=== PATIENT | male | born 1950 | race African-American/Black ===

== ENCOUNTER 2018-05-13 13:00 | Emergency (ER) | payer MEDICARE, MEDICAID ==
[~2018-05-13] VITALS: Ht 190.5 cm; Wt 87.0 kg
[2018-05-13] MEDS ORDERED: IBUPROFEN 600MG TABLET PO ONE (14:00)
[2018-05-13] MEDS ORDERED: HYDROCODONE/ACETAMINOPHEN 5/325MG TABLET PO ONE (16:45)
[2018-05-13 18:24] VITALS: BP 154/77
== END 2018-05-13 18:27 | disposition home or self-care (01) ==
LOC: ER 14:40
DX: M25.511 Pain in right shoulder (principal); F17.200 Nicotine dependence, unspecified, uncomplicated
CPT/HCPCS: 71045; 73000; 99284

== ENCOUNTER 2019-06-28 21:23 | Emergency (ER) | payer MEDICAID, MEDICARE, OTHER ==
[~2019-06-28] VITALS: Ht 182.9 cm; Wt 84.0 kg
[2019-06-28] MEDS ORDERED: SODIUM CHLORIDE 0.9% 1,000 ML IV ONE (21:58)
[2019-06-28] MEDS ORDERED: ONDANSETRON HCL 4MG/2ML INJ IV STA (21:58)
[2019-06-28 22:33] LABS: BG BASE EXCESS 0.4 mmol/L (-2.0-2.0); BG CARBOXYHEMOGLOBIN 3.4 % (0.5-1.5); BG DEOXYHEMOGLOBIN 4.4 % (0.0-5.0); BG FRACTION INSPIRED OXYGEN 21; BG HCO3 ACT 26.3 mmol/L (22.0-26.0); BG METHEMOGLOBIN 0.2 % (0.0-1.5); BG OXYGEN SATURATION 95.4 % (92.0-98.5); BG PCO2 47.1 mmHg (35.0-45.0); BG PH 7.364 (7.350-7.450); BG PO2 79.6 mmHg (75.0-100.0); BG SAMPLE SITE RIGHT BRACHIAL; BG TOTAL HEMOGLOBIN 14.3 g/dL (12.0-18.0); BG VENT MODE ROOM AIR
[2019-06-29 00:03] LABS: BASOPHILS % 0.3 % (0.0-2.0); EOSINOPHILS % 0.5 % (0.0-5.0); HEMATOCRIT. 44.8 % (42.0-52.0); HEMOGLOBIN. 14.4 g/dL (14.0-18.0); LYMPHOCYTES % 18.2 % (20.0-50.0); MEAN CORPUSCULAR HEMOGLOBIN 29.6 pg (28.0-32.0); MEAN CORPUSCULAR VOLUME 91.9 fL (80.0-94.0); MEAN PLATELET VOLUME 8.3 fl (7.4-10.4); MONOCYTES % 7.4 % (2.0-8.0); NEUTROPHILS % 73.6 % (40.0-76.0); PLATELET 186 x1000/uL (130-400); RED BLOOD CELL COUNT 4.88 mill/uL (4.7-6.1); RED CELL DISTRIBUTION WIDTH 14.4 % (11.6-14.6)
[2019-06-29 00:08] LABS: CHLORIDE 108 mEq/L (98-107)
[2019-06-29 00:13] LABS: ETHANOL BLOOD < 10 mg/dL
[2019-06-29 01:40] LABS: PARTIAL THROMBOPLASTIN TIME 27.5 sec (23.4-31.0); PROTHROMBIN TIME 10.5 sec (9.6-11.0)
[2019-06-29 02:02] LABS: CREATINE KINASE MB FRACTION 2.3 ng/mL (0.5-3.6)
[2019-06-29 03:07] VITALS: BP 133/67
== END 2019-06-29 04:10 | disposition short-term general hospital (02) ==
LOC: ER 21:23 → CANBEDREQ 06-29 05:12
DX: R55 Syncope and collapse (principal); R53.1 Weakness; G93.40 Encephalopathy, unspecified
CPT/HCPCS: 36415; 36600; 70450; 71045; 80053; 80320; 82140; 82375; 82550; 82553; 82805; 83605; 83690; 83880; 84443; 84484; 85025; 85610; 85730; 87040; 93005; 96361; 96374; 99285; J2405; J7030; G0480

== ENCOUNTER 2020-05-24 12:18 | Emergency (ER) | payer OTHER ==
[~2020-05-24] VITALS: Ht 185.4 cm; Wt 84.0 kg
[2020-05-24 13:36] LABS: BASOPHILS % 0.3 % (0.0-2.0); EOSINOPHILS % 0.2 % (0.0-5.0); HEMATOCRIT. 43.2 % (42.0-52.0); HEMOGLOBIN. 14.2 g/dL (14.0-18.0); LYMPHOCYTES % 10.4 % (20.0-50.0); MEAN CORPUSCULAR HEMOGLOBIN 28.6 pg (28.0-32.0); MEAN CORPUSCULAR VOLUME 86.8 fL (80.0-94.0); MONOCYTES % 5.5 % (2.0-8.0); NEUTROPHILS % 83.6 % (40.0-76.0); RED BLOOD CELL COUNT 4.98 mill/uL (4.7-6.1); RED CELL DISTRIBUTION WIDTH 14.6 % (11.6-14.6)
[2020-05-24 13:38] LABS: CHLORIDE 102 mEq/L (98-107)
[2020-05-24 13:42] LABS: ETHANOL BLOOD < 10 mg/dL
[2020-05-24 14:02] LABS: PLATELET 129 x1000/uL (130-400)
[2020-05-24] MEDS ORDERED: DOXYCYCLINE 100MG in DEXTROSE 5% WATER 100ML IV SCH (15:00)
[2020-05-24] MEDS ORDERED: DOXYCYCLINE HYCLATE 100 MG/VIAL IV ONE (15:00)
[2020-05-24] MEDS ORDERED: CEFTRIAXONE 1 G PREMIX 50 ML IV NR (15:00)
[2020-05-24 19:00] VITALS: BP 156/73
== END 2020-05-24 19:23 | disposition short-term general hospital (02) ==
LOC: ER 12:44
DX: J18.9 Pneumonia, unspecified organism (principal); I63.9 Cerebral infarction, unspecified; R29.6 Repeated falls; I10 Essential (primary) hypertension
CPT/HCPCS: 36415; 70450; 71045; 73030; 80053; 80320; 82140; 83690; 83880; 84443; 84484; 85025; 96365; 96368; 99285; J0696; J3490; J7060; G0480

== ENCOUNTER 2021-04-30 22:36 | Inpatient (IN) | payer OTHER, MEDICAID ==
[~2021-04-30] VITALS: Ht 182.9 cm; Wt 67.6 kg
[~2021-04-30 22:36] MED LIST: ASCO500T20 PO; DILT90TA2 PO; FAMO20TA8 PO; LINE600T11 PO
[2021-05-01] MEDS ORDERED: ONDANSETRON HCL 4MG/2ML INJ IV STA (00:43)
[2021-05-01] MEDS ORDERED: MORPHINE SULFATE 4 MG/ML CPJ (NOT FOR IM USE) IV STA (00:43)
[2021-05-01] MEDS ORDERED: SODIUM CHLORIDE 0.9% 1,000 ML IV ONE (00:45)
[2021-05-01] MEDS ORDERED: MORPHINE SULFATE 2 MG/ML CPJ (NOT FOR IM USE) IV STA (01:30)
[2021-05-01 01:37] LABS: BASOPHILS % 0.8 % (0.0-2.0); EOSINOPHILS % 0.8 % (0.0-5.0); HEMATOCRIT. 37.2 % (42.0-52.0); HEMOGLOBIN. 12.2 g/dL (14.0-18.0); LYMPHOCYTES % 35.5 % (20.0-50.0); MEAN CORPUSCULAR HEMOGLOBIN 28.5 pg (28.0-32.0); MEAN PLATELET VOLUME 8.1 fl (7.4-10.4); MONOCYTES % 7.1 % (2.0-8.0); NEUTROPHILS % 55.8 % (40.0-76.0); PLATELET 364 x1000/uL (130-400); RED BLOOD CELL COUNT 4.28 mill/uL (4.7-6.1); RED CELL DISTRIBUTION WIDTH 15.3 % (11.6-14.6)
[2021-05-01 01:41] LABS: CHLORIDE 113 mEq/L (98-107)
[2021-05-01 03:31] LABS: CLARITY URINE CLEAR (CLEAR); COLOR URINE YELLOW (YELLOW); KETONES URINE NEGATIVE (NEGATIVE); LEUKOCYTE ESTERASE URINE TRACE (NEGATIVE); NITRITE URINE POSITIVE (NEGATIVE); OCCULT BLOOD URINE TRACE (NEGATIVE); PROTEIN URINE TRACE (NEGATIVE); SPECIFIC GRAVITY URINE 1.029 (1.005-1.030)
[2021-05-01] MEDS ORDERED: CEFTRIAXONE 1 G PREMIX 50 ML IV ONE (04:45)
[2021-05-01] MEDS ORDERED: CEFTRIAXONE 1 G PREMIX 50 ML IV SCH (09:15)
[2021-05-01] MEDS ORDERED: ACETAMINOPHEN 325MG TABLET PO PRN (09:15)
[2021-05-01] MEDS ORDERED: IPRATROPIUM/ALBUTEROL 0.5-3(2.5)MG/3ML NEB HHN PRN (09:15)
[2021-05-01] MEDS ORDERED: ONDANSETRON HCL 4MG/2ML INJ IV PRN (09:15)
[2021-05-01] MEDS ORDERED: CLONIDINE 0.1MG TABLET PO PRN (09:15)
[2021-05-01 18:20] VITALS: BP 126/56
[2021-05-01 20:00] VITALS: BP 129/68
[2021-05-01] MEDS: MORPHINE SULFATE 2 MG/ML CPJ (NOT FOR IM USE) IV PRN (23:51)
[2021-05-02] VITALS: BP 137/71
[2021-05-02 04:00] VITALS: BP 143/90
[2021-05-02] MEDS ORDERED: CEFTRIAXONE 1,000 MG in DEXTROSE 5% WATER 50 ML IV SCH (05:00)
[2021-05-02] MEDS ORDERED: NALOXONE HCL 0.4MG/ML VIAL IV PRN (05:45)
[2021-05-02] MEDS: CEFTRIAXONE 1,000 MG in DEXTROSE 5% WATER 50 ML IV SCH ×2 (06:42→11:13)
[2021-05-02 06:56] LABS: BASOPHILS % 0.4 % (0.0-2.0); EOSINOPHILS % 0.6 % (0.0-5.0); HEMATOCRIT. 33.3 % (42.0-52.0); HEMOGLOBIN. 10.8 g/dL (14.0-18.0); LYMPHOCYTES % 39.1 % (20.0-50.0); MEAN CORPUSCULAR HEMOGLOBIN 28.2 pg (28.0-32.0); MEAN PLATELET VOLUME 8.4 fl (7.4-10.4); MONOCYTES % 7.5 % (2.0-8.0); NEUTROPHILS % 52.4 % (40.0-76.0); PLATELET 331 x1000/uL (130-400); RED BLOOD CELL COUNT 3.83 mill/uL (4.7-6.1); RED CELL DISTRIBUTION WIDTH 15.2 % (11.6-14.6)
[2021-05-02 07:16] LABS: CHLORIDE 112 mEq/L (98-107)
[2021-05-02 07:29] LABS: LDL CHOLESTEROL 78 mg/dL (5-100)
[2021-05-02 07:32] LABS: HDL CHOLESTEROL 49 mg/dL (40-59)
[2021-05-02 08:00] VITALS: BP 139/70
[2021-05-02] MEDS: DIPHENHYDRAMINE 50MG/ML VIAL IV PRN ×3 (09:15→22:33)
[2021-05-02 10:34] LABS: BG BASE EXCESS 3.5 mmol/L (-2.0-2.0); BG CARBOXYHEMOGLOBIN 0.3 % (0.5-1.5); BG DEOXYHEMOGLOBIN 4.1 % (0.0-5.0); BG FRACTION INSPIRED OXYGEN 21; BG HCO3 ACT 28.8 mmol/L (22.0-26.0); BG METHEMOGLOBIN 0.1 % (0.0-1.5); BG OXYGEN SATURATION 95.9 % (92.0-98.5); BG OXYHEMOGLOBIN 95.5 % (94.0-97.0); BG PCO2 46.7 mmHg (35.0-45.0); BG PH 7.408 (7.350-7.450); BG PO2 84.8 mmHg (75.0-100.0); BG SAMPLE SITE RIGHT BRACHIAL; BG TOTAL HEMOGLOBIN 11.3 g/dL (12.0-18.0); BG VENT MODE ROOM AIR
[2021-05-02 12:00] VITALS: BP 123/66
[2021-05-02 16:00] VITALS: BP 148/71
[2021-05-02 20:00] VITALS: BP 103/67
[2021-05-03] VITALS: BP 123/67
[2021-05-03] MEDS: MORPHINE SULFATE 2 MG/ML CPJ (NOT FOR IM USE) IV PRN (02:53)
[2021-05-03 04:00] VITALS: BP 133/86
[2021-05-03 06:36] LABS: BASOPHILS % 0.4 % (0.0-2.0); EOSINOPHILS % 1.3 % (0.0-5.0); HEMATOCRIT. 33.3 % (42.0-52.0); LYMPHOCYTES % 30.3 % (20.0-50.0); MEAN CORPUSCULAR HEMOGLOBIN 28.4 pg (28.0-32.0); MEAN PLATELET VOLUME 8.5 fl (7.4-10.4); MONOCYTES % 6.7 % (2.0-8.0); NEUTROPHILS % 61.3 % (40.0-76.0); PLATELET 339 x1000/uL (130-400); RED BLOOD CELL COUNT 3.87 mill/uL (4.7-6.1); RED CELL DISTRIBUTION WIDTH 14.9 % (11.6-14.6)
[2021-05-03 06:46] LABS: CHLORIDE 109 mEq/L (98-107)
[2021-05-03 08:00] VITALS: BP 128/77
[2021-05-03 12:00] VITALS: BP 113/60
[2021-05-03 12:28] LABS: TOTAL IRON BINDING CAPACITY 176 ug/dL (250-450)
[2021-05-03 12:58] LABS: VITAMIN B12 SERUM 865 pg/mL (211-911)
[2021-05-03] MEDS: DILTIAZEM HCL 30MG TABLET PO SCH ×2 (14:48→21:27)
[2021-05-03] MEDS: ENOXAPARIN 80MG/0.8ML SYR SUBCUT SCH ×2 (14:48→21:27)
[2021-05-03 16:00] VITALS: BP 117/72
[2021-05-03 20:00] VITALS: BP 128/68
[2021-05-04] VITALS: BP 142/61
[2021-05-04] MEDS: DIPHENHYDRAMINE 50MG/ML VIAL IV PRN ×2 (00:03→13:15)
[2021-05-04 04:00] VITALS: BP 124/70
[2021-05-04] MEDS: DILTIAZEM HCL 30MG TABLET PO SCH ×2 (05:15→13:13)
[2021-05-04] MEDS: CEFTRIAXONE 1,000 MG in DEXTROSE 5% WATER 50 ML IV SCH (07:05)
[2021-05-04 08:00] VITALS: BP 112/69
[2021-05-04] MEDS: ENOXAPARIN 80MG/0.8ML SYR SUBCUT SCH ×2 (09:22→21:00)
[2021-05-04 12:00] VITALS: BP 106/58
[2021-05-04] MEDS ORDERED: LORAZEPAM 2MG/ML CPJ IV SCH (14:00)
[2021-05-04] MEDS ORDERED: RISPERIDONE 0.25MG TABLET PO SCH (15:00)
[2021-05-04 16:00] VITALS: BP 116/65
[2021-05-04] MEDS ORDERED: FERROUS SULFATE 325MG TABLET PO SCH (17:10)
[2021-05-04 21:11] VITALS: BP 144/75
== END 2021-05-04 22:20 | disposition short-term general hospital (02) | DRG 551 ==
LOC: ER 22:36 → MICUSO 05-01 08:23 → 7EST 05-01 15:32
PROVIDERS: ADMIT Internal Medicine; ATTEND Internal Medicine
DX: M48.02 Spinal stenosis, cervical region (principal); G82.50 Quadriplegia, unspecified; M48.55XA Collapsed vertebra, not elsewhere classified, thoracolumbar region, initial encounter for fracture; N39.0 Urinary tract infection, site not specified; G95.9 Disease of spinal cord, unspecified; G95.20 Unspecified cord compression; E44.0 Moderate protein-calorie malnutrition; M48.061 Spinal stenosis, lumbar region without neurogenic claudication; M51.26 Other intervertebral disc displacement, lumbar region; G58.9 Mononeuropathy, unspecified; E78.5 Hyperlipidemia, unspecified; F03.90 Unspecified dementia, unspecified severity, without behavioral disturbance, psychotic disturbance, mood disturbance, and anxiety; G89.29 Other chronic pain; I10 Essential (primary) hypertension; M47.9 Spondylosis, unspecified; M85.80 Other specified disorders of bone density and structure, unspecified site; M54.9 Dorsalgia, unspecified; L89.216 Pressure-induced deep tissue damage of right hip; I48.0 Paroxysmal atrial fibrillation; D50.9 Iron deficiency anemia, unspecified; Z86.73 Personal history of transient ischemic attack (TIA), and cerebral infarction without residual deficits; Z79.899 Other long term (current) drug therapy; Z68.20 Body mass index [BMI] 20.0-20.9, adult
CPT/HCPCS: 36415; 36600; 71045; 72100; 72141; 72146; 72148; 80048; 80053; 80061; 80076; 81003; 82040; 82270; 82375; 82607; 82805; 82962; 83540; 83550; 84134; 84153; 84443; 85025; 85044; 93005; 93306; 93970; 97162; 99285; C1893; J0696; J1200; J1650; J2270; J2405; J7030; J7060; G0103